=== PATIENT | male | born 2000 | race Caucasian/White ===

== ENCOUNTER 2020-07-24 20:56 | Emergency (ER) | payer OTHER ==
[~2020-07-24] VITALS: Ht 175.3 cm; Wt 72.7 kg
[2020-07-24] MEDS ORDERED: PROAAER10 INH (21:33)
[2020-07-24] MEDS ORDERED: dexameTHASONE 20MG/5ML VIAL (J1100 PER 1MG) IM ONE (22:00)
[2020-07-24] MEDS: COMBIVENT RESPIMAT 100-20MCG INHALER 4GM INH SCH ×3 (22:20→22:55)
--- NOTE | 2020-07-24 22:53 | REPVR ---
PROCEDURE INFORMATION: Exam: XR Chest, 1 View Exam date and time: 07/24/2020 10:04 PM Age: 19 years old Clinical indication: Shortness of breath; Additional info: Shortness of breath/covid TECHNIQUE: Imaging protocol: XR of the chest Views: 1 view. COMPARISON: No relevant prior studies available. FINDINGS: Lungs: No focal lung consolidation although there is central bronchial wall thickening and interstitial prominence particularly in the left lung laterally. Pleural spaces: No pleural effusion. No pneumothorax. Heart/Mediastinum: Cardiomediastinal silhouette is not enlarged. Bones/joints: No significant skeletal findings. IMPRESSION: Central bronchial wall thickening which may be acute or chronic. If acute, this can be seen with bronchitis. No focal lung consolidation to suggest pneumonia. Electronically signed by: Bridgette Pimentel On 07/24/2020 22:53:14 PM
[2020-07-24] MEDS ORDERED: PRED20TA PO (23:46)
[2020-07-25 01:11] VITALS: BP 132/60
== END 2020-07-25 02:30 | disposition home or self-care (01) ==
LOC: M ED 20:56
DX: U07.1 COVID-19 (principal); J45.909 Unspecified asthma, uncomplicated; Z79.51 Long term (current) use of inhaled steroids
CPT/HCPCS: 71045; 94640; 96372; 99284; J1100

== ENCOUNTER → 2020-10-02 | Outpatient (CLI) | payer OTHER ==
[~2020-10-02] MED LIST: METHACHOLINE KIT (J7674) INH ONE; PRED20TA PO; PROAAER10 INH
--- NOTE | 2020-10-02 08:29 | PFTRPT ---
Height: 69.00 Inches Weight: 160.00 Lbs BSA: 1.88 Diagnosis: R06.00 DATE: 10/02/2020 ORDERED BY: YURY Reed QUALITY: Study of excellent technical quality. PROCEDURE: Under protocol, methacholine was administered. At a dose of 0.25 mg or 1.375 CDUs, a 36% decline in the FEV1 was noted. PC of 0.03 is significant. Flow rates did return to baseline post bronchodilator administration. IMPRESSION: Positive methacholine challenge study. MTDD
== END ==
LOC: M CARPUL 07:48
PROVIDERS: ATTEND Physician Assistant
DX: R06.00 Dyspnea, unspecified (principal)
CPT/HCPCS: 94070; J7674